=== PATIENT | male | born 1940 | race Caucasian/White ===

== ENCOUNTER → 2019-05-28 | Outpatient (CLI) | payer OTHER ==
[~2019-05-28] MED LIST: ABILIFY 2 MG2 M1 PO; ALEVE220 MG PO; ALFUZOSIN HCL10 MG PO; CALCIUM/MAG/ZINC PO; CARBIDOPA/LEVO1 TAB PO; DYAZIDE 37.5-21 EACH PO; FIBER TABS625 MG PO; FINASTERIDE5 MG PO; FISH OIL 1,0001 EAC5 PO; FLUOXETINE HCL40 MG PO; IBUPROFEN 200200 M1 PO; MEDROLDOSEPACK PO; MOBIC7.5 MG PO; MULTI-VITAMIN1 EAC5 PO; NORCO 10-325 T1 EACH PO; NORCO 5-325 TA1 EACH PO; PROBIOTIC1 EAC1 PO; REMERON15 MG PO; STOOL SOFTENER1 EAC2 PO; TRIAMTERENE-HC1 EAC1 PO; VALIUM2 MG PO; VITAMIN D PO; XARELTO10 MG PO
== END ==
LOC: RAD 10:03
DX: J98.11 Atelectasis (principal); J98.4 Other disorders of lung; M41.84 Other forms of scoliosis, thoracic region

== ENCOUNTER → 2019-06-03 | Outpatient (CLI) | payer OTHER | LOC: RAD → SPEECH 12:40 | DX: R13.13 Dysphagia, pharyngeal phase (principal) ==

== ENCOUNTER → 2019-06-05 | Outpatient (CLI) | payer OTHER ==
--- NOTE | 2019-06-08 16:44 | SLE ---
[facility] [place] [address] POLYSOMNOGRAPHY STUDY Name: SUSIE BARTHOLOMEW Room #: REG [facility]#: [id number] Admission: 06/05/19 Attend Phys: Arun Guo MD Discharge: Date of : 36 Report #: [id number] THIS REPORT FOR: //name// CC: Arun REYES MD DATE OF SERVICE: 06/06/2019 ATTENDING PHYSICIAN: Dr. Nathan Reyes. The patient is an 78 years old who weighs 242 pounds with a BMI of 37.9. The patient's [place] score was 8. The patient underwent diagnostic sleep study performed at [facility]. During the night study, the patient spent 382 minutes in bed and slept for 267 minutes with a sleep efficiency of 69%. Sleep latency was 16.3 minutes with a REM latency of 278 minutes. Overall, sleep architecture showed normal stage 1 sleep, increased his stage 2 sleep, normal slow wave and reduced REM sleep. During the night study, the patient had 45 obstructive apneas, no mixed apneas and 9 central apneas. There were 40 hypopneas. The patient's apnea hypopnea index was 21 per hour with a REM index of 14.7 per hour and a supine and an absent supine index due to lack of supine sleep. EKG monitoring revealed average heart rate of 63 beats per minute. Occasional PVCs observed. No sustained arrhythmias seen. PLMS were seen at an index of 101 per hour and 2 per hour caused EEG arousals. Nocturnal oximetry study revealed an average oxygen saturation of 93% with a lowest of 86%. 3.9 minutes were spent in oxygen saturation of less than 89%. The patient did meet the criteria for CPAP initiation; however, there was not enough time to initiate CPAP. The patient also had difficulty in understanding the instructions due to underlying dementia. IMPRESSION: 1. Moderate sleep apnea-hypopnea syndrome at an apnea-hypopnea index of 21 per hour. 2. Mild nocturnal hypoxia secondary to obstructive sleep apnea. 3. Severe periodic limb movements. 4. Reduced sleep efficiency resulting from sleep maintenance insomnia. RECOMMENDATIONS: 1. The patient should return to the sleep lab for CPAP titration. [facility] [address] [place] [address] POLYSOMNOGRAPHY STUDY Name: FLORIDASUSIE Castañeda Room #: REG [facility]#: [id number] Admission: 06/05/19 Attend Phys: Arun Guo MD Discharge: Date of : 36 Report #: [id number] 2. Once the patient is optimally treated, then follow up in 4-6 weeks to assess compliance with CPAP and to document clinical improvement. 3. Weight loss is strongly advised. 4. 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 5. Cautioned regarding driving until symptoms of sleep apnea resolve with the use of CPAP. 6. The patient should also be further evaluated for symptoms of restless legs during the day and if present, it can be treated with dopaminergic agonist agents. 7. If the patient's insomnia does not improve with effective use of CPAP, then consider treating the insomnia according to the etiology. <ELECTRONICALLY SIGNED> By: Arun Guo MD 06/08/19 1644 [id number] Arun Guo MD /nt
== END ==
LOC: SLEEPLAB 10:20
DX: G47.33 Obstructive sleep apnea (adult) (pediatric) (principal)

== ENCOUNTER 2021-06-27 14:04 | Emergency (ER) | payer OTHER ==
[~2021-06-27] VITALS: Ht 175.3 cm; Wt 77.1 kg
--- NOTE | ~2021-06-27 | EMS ---
[facility] [address] [place] [address] EMS Patient Care Report Name: SUSIE BARTHOLOMEW Room #: DEP [place]#: [id number] Admission: 06/27/21 Attend Phys: Discharge: 06/27/21 Date of : 36 Report #: [id number] THIS REPORT FOR: //name// Report Transmitted: 06/30/2021 10:29 EMS Care Summary [place], [place]/[facility] Incident [id number] @ 06/27/2021 13:26 Incident Location [address] [place] [address] Patient SUSIE BARTHOLOMEW Male, 80 Years 1940 Patient Address Patient History Dementia,Parkinson's Disease, Patient Allergies No known allergies, Patient Medications Mirtazapine, Carbidopa, Fluoxetine, Aripiprazole, Finasteride, Chief Complaint right knee pain Disposition Transported No Lights/[place] Dispatch Reason Falls Transported To [facility] Narrative Medic 41 dispatched to a residence on a fall. Patient's states that he has been falling frequently and his physician wants him to be seen. Patient states he has no injuries from his falls but he has been feeling weak. [facility] [address] [place] [address] EMS Patient Care Report Name: SUSIE BARTHOLOMEW Room #: DEP [place]#: [id number] Admission: 06/27/21 Attend Phys: Discharge: 06/27/21 Date of : 36 Report #: [id number] Upon EMS arrival patient was found sitting in chair with and pumper crew. Patient was assisted to stretcher by EMS and pumper crew and belted in. Patient was loaded into ambulance where mask was placed on patient and vitals were taken and monitored en route to [facility]. Patient was moved to bed via sheetpull and bed rails raised. Care was transferred to receiving RN. EMS back in service with no further incidents. Initial Vitals @13:50P: 78,R: 16,BP: 126/70,Pain: 2/10,GCS: 15,Glucose: 101,SpO2: 95,Revised Trauma: 12, @13:51P: 86,R: 16,BP: 132/70,Pain: 2/10,GCS: 15,SpO2: 95,Revised Trauma: 12, Assessments @13:53MENTAL:Event Oriented,Person Oriented,Time Oriented,Place Oriented,SKIN:HEENT:Head/Face: Other,Head/Face: Facial Droop,Neck/Airway: No Abnormalities,LUNG SOUNDS:General: No Abnormalities,ABDOMEN:General: No Abnormalities,PELVIS//GI:EXTREMITIES:Right Leg: Other,Left Arm: No Abnormalities,Right Arm: No Abnormalities,Left Leg: No Abnormalities,PULSE:NEURO: Impression Generalized Weakness Procedures @13:53ALS AssessmentResponse: UnchangedSucceeded@13:53BLS AssessmentResponse: Unchanged Timeline 13:24,Call Received 13:24,Dispatch Notified 13:26,Dispatched 13:27,En Route 13:38,On Scene 13:40,At Patient 13:49,Depart Scene 13:50,BP: 126/70 M,PULSE: 78,RR: 16 R,SPO2: 95 Ox,ETCO2: ,B,PAIN: 2,GCS: 15, 13:51,BP: 132/70 M,PULSE: 86,RR: 16 R,SPO2: 95 Ox,ETCO2: ,BG: ,PAIN: 2,GCS: 15, 13:53,ALS Assessment,Response: UnchangedSucceeded, 13:53,BLS Assessment,Response: Unchanged 13:58,At Destination 14:18,Call Closed Disclaimer v1.1 Copyright 2020 [employer], [address] [address] EMS Patient Care Report Name: SUSIE BARTHOLOMEW [facility] [id number] Admission: 06/27/21 Attend Phys: Discharge: 06/27/21 Date of : 36 Report #: [id number] This EMS Care Summary contains data elements from the applicable legal record (which may be displayed differently). It is designed to provide pertinent information for the following purposes: continuity of care, clinical quality, and state data reporting. The complete legal record is available to ED staff and administrators of the receiving hospital in [employer] Patient Tracker. All data is provided "as is."
[2021-06-27 14:19] LABS: ABSOLUTE NEUTROPHILS 6.4 thou/uL (1.4-8.2); BASOPHILS 1.2 % (0.0-2.0); EOSINOPHILS 1.6 % (0.0-3.0); HEMATOCRIT 43.8 % (42.0-52.0); HEMOGLOBIN 14.2 gm/dL (14.0-18.0); LYMPHOCYTES 15.5 % (24.0-44.0); MCH 29.8 pg (26.0-34.0); MCHC 32.4 g/dL (28.0-37.0); MONOCYTES 9.1 % (1.0-8.0); PLATELET COUNT 299 thou/uL (150-400); POLYS 72.6 % (36.0-66.0); RBC 4.76 mil/uL (4.50-6.00); RDW 14.1 % (10.5-14.5); WBC 8.8 thou/uL (4.0-11.0)
[2021-06-27 14:36] LABS: CALCIUM 9.2 mg/dL (8.5-10.1); CREATININE 1.3 mg/dL (0.7-1.3); POTASSIUM 3.8 mmol/L (3.5-5.1)
[2021-06-27 14:41] LABS: ALBUMIN 3.3 g/dL (3.4-5.0); TOTAL PROTEIN 6.5 g/dL (6.4-8.2)
--- NOTE | 2021-06-27 15:01 | EKG ---
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1940 Requested By: Guzman Gutierrez Order Number: [id number] MD: Yasmani Talley Measurements Intervals Lander Rate: 75 P: NH: QRS: -24 QRSD: 84 T: 63 QT: 389 QTc: 435 Interpretive Statements Atrial fibrillation Left ventricular hypertrophy Baseline wander in lead(s) V5 Compared to ECG 07/06/2014 09:07:56 Left ventricular hypertrophy now present Sinus rhythm no longer present Electronically Signed On 06-27-2021 15:01:40 CDT by Yasmani Talley [email or web address] <ELECTRONICALLY SIGNED> By: Yasmani Talley MD, [facility] 06/27/21 1501 1411 1411 Yasmani Talley MD, FACC /EPI
[2021-06-27 15:46] LABS: URINE BLOOD NEGATIVE (Negative); URINE CLARITY SL CLOUDY; URINE COLOR YELLOW; URINE GLUCOSE-RANDOM* NEGATIVE (Negative); URINE KETONES 1+ (Negative); URINE LEUKOCYTES-REFLEX NEGATIVE (Negative); URINE NITRITE-REFLEX NEGATIVE (Negative); URINE PROTEIN (DIPSTICK) TRACE (Negative); URINE SPECIFIC GRAVITY >= 1.030 (1.005-1.035)
[2021-06-27 15:49] LABS: ICTOTEST (BILI CONFIRMATORY) Negative (Negative); URINE BILIRUBIN NEGATIVE (Negative)
[2021-06-27 16:19] VITALS: BP 165/90
== END 2021-06-27 16:20 | disposition home or self-care (01) ==
LOC: ER 14:04
PROVIDERS: Nurse Practitioner
DX: Z04.3 Encounter for examination and observation following other accident (principal); I10 Essential (primary) hypertension; K21.9 Gastro-esophageal reflux disease without esophagitis; F32.9 Major depressive disorder, single episode, unspecified; Z91.81 History of falling; Z79.899 Other long term (current) drug therapy; W19.XXXA Unspecified fall, initial encounter; Y93.89 Activity, other specified; Y92.89 Other specified places as the place of occurrence of the external cause; Y99.8 Other external cause status